=== PATIENT | male | born 1965 | race Caucasian/White ===

== ENCOUNTER 2019-04-27 10:13 | Inpatient (IN) ==
[2019-04-23 11:58] LABS: Appearance,Urine CLEAR; Bacteria,Urine 0 /hpf (0); Bilirubin,Urine NEG (NEG); Color,Urine YELLOW; Glucose,Urine (UA) NEGATIVE (NEG); Ketones,Urine NEG (NEG); Leukocyte Esterase,Urine NEG /uL (NEG); Mucus,Urine FEW /hpf (0); Nitrate,Urine NEG (NEG); Protein,Urine 30 mg/dL (NEG); Specific Gravity,Urine 1.024 (1.000-1.035); Urine Blood NEG mg/dL (<0.03); Urine Hyaline Cast 1 /lpf (0-2); Urine RBC 1 /hpf (0-1); Urine Squamous Epithelial Cell 3 /hpf (0-4); Urine WBC 2 /hpf (0-4); Urobilinogen,Urine NEG (NEG)
[2019-04-23 12:57] LABS: Blood Urea Nitrogen 19 mg/dl (6-20); Calcium 9.5 mg/dl (8.6-10.4); Carbon Dioxide 26 mmol/L (22-30); Chloride 104 mmol/L (96-108); Glomerular Filtration Rate 69; Glucose 122 mg/dL (70-105)
[2019-04-23 12:59] LABS: Basophils # (Auto) 0 K/mcL (0.0-0.3); Basophils % (Auto) 0.3 % (0.0-2.0); Eosinophils # (Auto) 0.3 K/mcL (0.0-0.7); Eosinophils % (Auto) 3.9 % (0.0-7.0); Granulocytes % (Auto) 57.6 % (38.0-78.0); Hematocrit 46.4 % (41.0-55.0); Hemoglobin 15.7 g/dL (13.5-16.5); Lymphocytes # (Auto) 2.1 K/mcL (1.5-4.8); Lymphocytes % (Auto) 29.1 % (15.5-49.0); Mean Cell Volume 90.9 fL (80.0-100.0); Mean Corpuscular HGB Conc 33.8 g/dL (31.0-36.0); Mean Platelet Volume 8.1 fL (7.4-10.4); Monocytes # (Auto) 0.7 K/mcL (0.1-0.9); Monocytes % (Auto) 9.1 % (1.0-12.0); Platelet Count 162 K/mcL (140-440); RBC 5.11 M/mcL (4.50-5.90); Red Cell Distribution Width 13.6 % (11.5-14.5); WBC 7.2 K/mcL (4.5-11.0)
[2019-04-23 13:00] LABS: Prothrombin Time 12.8 sec (11.9-14.5)
[~2019-04-27 10:13] MED LIST: 0.9 % SODIUM CHLORIDE 9 ML, KETOROLAC 30 MG, ROPIVACAINE HCL/PF 49.5 ML, EPINEPHrine 0.... IJ SCH; ACETAMINOPHEN 500 MG TABLET PO SCH; CELECOXIB 200 MG CAPSULE PO SCH; GABAPENTIN 400 MG CAPSULE PO SCH; ceFAZolin 3 GM in DEXTROSE 5% IN WATER 50 ML IV SCH; oxyCODONE 10 MG TAB.ER.12H PO SCH
[2019-04-27] MEDS ORDERED: 0.9 % SODIUM CHLORIDE 250 ML IV SCH (10:30)
[2019-04-27] MEDS ORDERED: ePHEDrine 50 MG/ML AMPUL IV ONE (11:03)
[2019-04-27] MEDS ORDERED: LIDOCAINE HCL/PF 100 MG/5 ML SYRINGE IV ONE (11:03)
[2019-04-27] MEDS ORDERED: TRANEXAMIC ACID 1,000 MG/10 ML VIAL IV ONE ×3 (11:03→13:28)
[2019-04-27] MEDS ORDERED: PHENYLEPHRINE 10 MG/ML VIAL IV ONE (11:03)
[2019-04-27] MEDS ORDERED: KETAMINE 100 MG/ML ML IV ONE (11:03)
[2019-04-27] MEDS ORDERED: DEXAMETHASONE 10 MG/ML VIAL IV ONE (11:03)
[2019-04-27] MEDS ORDERED: MIDAZOLAM 5 MG/5 ML VIAL IV ONE (11:03)
[2019-04-27] MEDS ORDERED: SUCCINYLCHOLINE 20 MG/ML ML IV ONE (11:03)
[2019-04-27] MEDS ORDERED: ROPIVACAINE HCL/PF 20 ML VIAL IJ ONE (11:03)
[2019-04-27] MEDS ORDERED: fentaNYL 100 MCG/2 ML VIAL IV ONE (11:03)
[2019-04-27] MEDS ORDERED: ONDANSETRON 4 MG/2 ML VIAL IV ONE (11:03)
[2019-04-27] MEDS ORDERED: PROPOFOL 200 MG/20 ML VIAL IV ONE (11:03)
[2019-04-27] MEDS ORDERED: ePHEDrine 50 MG/ML AMPUL IV PRN (12:09)
[2019-04-27] MEDS ORDERED: FLUMAZENIL 0.1 MG/ML ML IV PRN (12:09)
[2019-04-27] MEDS ORDERED: ONDANSETRON 4 MG/2 ML VIAL IV PRN ×2 (12:09→12:38)
[2019-04-27] MEDS ORDERED: MEPERIDINE 25 MG/ML SYRINGE IV PRN (12:09)
[2019-04-27] MEDS ORDERED: diphenhydrAMINE 50 MG/ML VIAL IV PRN (12:09)
[2019-04-27] MEDS ORDERED: METHOCARBAMOL 1,000 MG/10 ML VIAL IV PRN (12:09)
[2019-04-27] MEDS ORDERED: HYDROmorphone 2 MG/ML VIAL IV PRN ×2 (12:09→12:38)
[2019-04-27] MEDS ORDERED: ATROPINE SULFATE 0.4 MG/ML VIAL IV PRN (12:09)
[2019-04-27] MEDS ORDERED: IPRATROPIUM/ALBUTEROL 3 ML AMPUL.NEB NEB PRN (12:09)
[2019-04-27] MEDS ORDERED: fentaNYL 100 MCG/2 ML VIAL IV PRN (12:09)
[2019-04-27] MEDS ORDERED: METOPROLOL TARTRATE 5 MG/5 ML VIAL IV PRN (12:09)
[2019-04-27] MEDS ORDERED: PROMETHAZINE 25 MG/ML VIAL IV PRN (12:09)
[2019-04-27] MEDS ORDERED: NALOXONE HCL 0.4 MG/ML VIAL IV PRN (12:09)
[2019-04-27] MEDS ORDERED: GENTAMICIN SULFATE 800 MG/20 ML VIAL IR ONE (12:11)
[2019-04-27] MEDS ORDERED: LACTATED RINGERS 1,000 ML IV SCH (12:15)
[2019-04-27] MEDS ORDERED: BISACODYL 10 MG SUPP.RECT PR PRN (12:38)
[2019-04-27] MEDS ORDERED: TEMAZEPAM 15 MG CAPSULE PO PRN (12:38)
[2019-04-27] MEDS ORDERED: ACETAMINOPHEN 325 MG TABLET PO PRN (12:38)
[2019-04-27] MEDS ORDERED: POLYETHYLENE GLYCOL 3350 17 GM PACKET PO PRN (12:38)
[2019-04-27] MEDS ORDERED: BENZOCAINE/MENTHOL 1 LOZENGE PO PRN (12:38)
[2019-04-27] MEDS ORDERED: MAGNESIUM HYDROXIDE 30 ML ORAL.SUSP PO PRN (12:38)
[2019-04-27] MEDS ORDERED: FLEETS ADULT ENEMA PR PRN (12:38)
--- NOTE | 2019-04-27 12:38 | Brief Operative Note ---
Date of procedure: 04/27/19 Pre-op diagnosis: Right knee djd in 2 compartments Post-op diagnosis: same Procedure: Right tka with teresita robott Grafts/Implants: Yes Anesthesia: SWEETIE Surgeon: Yovani Gracia Block Cuber: Cordell Arvizu Estimated blood loss (cc): 120 Tourniquet Time (Minutes): 55 Specimens Removed/Pathology: none sent Condition: stable Disposition: PACU
--- NOTE | 2019-04-27 13:03 | Operative Note ---
DATE OF OPERATION: 04/27/2019 PREOPERATIVE DIAGNOSIS: Right knee degenerative arthritis, patellofemoral joint and medial. POSTOPERATIVE DIAGNOSIS: Right knee degenerative arthritis, patellofemoral joint and medial. PROCEDURE: Left total knee arthroplasty using Ronny robot. SURGEON: Yovani Gracia MD OFFSET PRESS OPERATOR HELPER: Cordell Arvizu PA-C. This provider's expertise and technical skill were required throughout the case. The MIKHAIL assisted with preoperative coordination, intraoperative retraction, wound closure, dressing and splint application, as well as postoperative documentation and care coordination. ANESTHESIA: General LMA anesthesia. COMPLICATIONS: None. DESCRIPTION OF PROCEDURE: The patient was brought to the operating room and put to sleep with general LMA anesthesia. Once asleep, the patient had the right knee sterilely prepped and draped in the usual sterile fashion. A timeout was performed confirming the operative procedure, the possibility of a partial knee or a total knee was covered. We opened the knee with midline incision, midvastus approach which showed severe arthritis in the patellofemoral joint with complete chondromalacia of the medial compartment with bony spurs present. ACL and PCL were intact. Spurs were found on medial and lateral portions of the tibia. With these findings, we proceeded with a total knee arthroplasty with two compartments being quite involved with the arthritis. We then placed the pins above and below the knee. Once this was done, we then registered the center of hip rotation, registered thirty points on the femur and tibia and registered intraarticular pins. We balanced the knee at 90 degrees and 15 degrees. Once this was done, we then irrigated and balanced the knees thoroughly and adjusted the implants for size, set rotation and varus malalignment. The patella was covered and seemed to track very well on the computer program. Once done, we then found that compartment was severely involved, the patellar femoral. We brought in the robot, made our bony cuts on the tibia and the femur, changed blade and cut the distal cuts. Once done, we then removed the bony fragments and found that there were significant spurs posteriorly which were then removed. Once done, we irrigated thoroughly and removed the remnants of the meniscus. We trialed the components on the tibia and the femur, trialing a size 9, 10 and 11. The patient was most stable with 0 degrees extension at an 11 mm poly. With this, we then chose to best cover the patella was a 40 mm oval patella. Once all components were trialled and shown in excellent range of motion and stability, we irrigated thoroughly and then cemented into place the femur and the tibia with an 11 mm poly and a 40 mm patellar button. The patella measured 26 mm. We cut this to 16 mm and it cemented into place the above-mentioned implants, size 40 patella. The components were very large given the size. We removed all spurs and irrigated thoroughly. We kept the knee at 45 degrees and deflated the tourniquet at 45 minutes and then controlled any bleeding. A small amount of tissue was removed and the superior medial compartment to ensure that this did not impinge or get caught up in a closure. We irrigated. We used Stratafix suture to close the capsule medially with #2 Stratafix with two sutures. Once completely closed, we closed the skin with 2-0 Vicryl and with adhesive closure. The patient tolerated this well without complication. Blood loss was about 120 mL. RBH:merrill Job ID: [id number] Doc ID: [id number] Yovani Gracia MD
--- NOTE | 2019-04-27 13:50 | XRay Report ---
CLINICAL INFORMATION: Post-Op Total Knee COMPARISON: None. FINDINGS: Totally prostheses is anatomically aligned. No osseous abnormalities. Gas and soft tissue swelling seen as expected. IMPRESSION: Negative Interpreted and Authenticated by: Dony Reynolds 04/27/19
[2019-04-27] MEDS: 0.9 % SODIUM CHLORIDE 10 ML SYRINGE IV SCH ×2 (15:41→21:00)
[2019-04-27] MEDS: KETOROLAC 15 MG/ML VIAL IV SCH (18:06)
[2019-04-27] MEDS: 0.45 % SODIUM CHLORIDE 1,000 ML IV SCH ×2 (18:07→20:58)
[2019-04-27] MEDS ORDERED: ALBUTEROL SULFATE 1 PUFF INHALER INH PRN (18:15)
[2019-04-27] MEDS: ceFAZolin 1 GM VIAL IV SCH (19:19)
[2019-04-27] MEDS: ASPIRIN 325 MG ENTERIC COATED TABLET PO SCH (20:54)
[2019-04-27] MEDS: DOCUSATE SODIUM 100 MG CAPSULE PO SCH (20:55)
[2019-04-27] MEDS: GABAPENTIN 400 MG CAPSULE PO SCH (20:56)
[2019-04-27] MEDS: HYDROcodone/APAP 10/325MG TABLET PO PRN (20:59)
[2019-04-27] MEDS ORDERED: PARoxetine 20 MG TABLET PO SCH (21:00)
[2019-04-27] MEDS ORDERED: SENNOSIDES 1 TABLET PO SCH (21:00)
[2019-04-27] MEDS ORDERED: DOCUSATE SODIUM 100 MG CAPSULE PO SCH (21:00)
[2019-04-27] MEDS ORDERED: ATORVASTATIN 20 MG TABLET PO SCH (21:00)
[2019-04-28] MEDS: KETOROLAC 15 MG/ML VIAL IV SCH ×3 (00:08→12:33)
[2019-04-28] MEDS: ceFAZolin 1 GM VIAL IV SCH (02:54)
[2019-04-28] MEDS: 0.9 % SODIUM CHLORIDE 10 ML SYRINGE IV SCH (05:20)
[2019-04-28] MEDS ORDERED: OMEPRAZOLE 20 MG CAPSULE PO SCH (07:30)
--- NOTE | 2019-04-28 07:47 | Orthopedic Progress Note ---
Subjective Patient information: Note initiated : 04/28/19 at 7:46 am Service Date, if different from initiated Date: [] Patient: Juan Lua 53 y/o M admitted on 04/27/19 for Right Uni Medial SEGUNDO Knee vs Total Knee. Chief Complaint: [Pt is stable this morning on post operative day 1 without any significant concerns or complaints. Patients vital signs have remained stable. Patients dressing is dry and is grossly intact from a neurovascular and motor standpoint. Patients 10 point ROS is otherwise negative. ] Objective Vital signs: Vital Signs Temp Pulse Resp BP BP Pulse Ox 04/28/19 05:00 79 92 04/28/19 03:33 97.5 F 79 16 113/72 92 04/28/19 00:56 95 H 93 04/27/19 22:54 98.1 F 95 H 16 102/62 91 04/27/19 21:00 97 H 94 04/27/19 19:50 97 H 18 92 04/27/19 19:22 98.9 F 97 H 18 114/65 92 04/27/19 17:00 91 H 92 04/27/19 16:00 97.1 F 94 H 18 107/63 94 04/27/19 15:45 97.1 F 88 18 124/83 97 04/27/19 15:15 90 18 129/77 95 04/27/19 15:00 88 18 114/74 95 04/27/19 14:45 92 H 18 116/79 95 04/27/19 14:30 93 H 16 121/80 95 04/27/19 14:15 97.2 F 93 H 18 113/72 89 L 04/27/19 14:07 97.6 F 91 H 15 136/68 93 04/27/19 14:02 97.6 F 91 H 15 148/72 92 04/27/19 13:55 97.6 F 94 H 16 159/81 93 04/27/19 13:50 98.0 F 98 H 16 130/74 91 04/27/19 13:45 99 H 16 119/86 90 04/27/19 13:40 97 H 15 136/68 91 04/27/19 13:35 95 H 18 136/68 94 04/27/19 13:30 90 17 144/79 95 04/27/19 13:25 94 H 16 153/81 95 04/27/19 13:21 98.4 F 103 H 16 154/77 93 04/27/19 10:31 97.8 F 73 18 116/84 94 Intake and Output 04/27/19 04/28/19 04/28/19 21:59 05:59 13:59 Intake Total 790 1950 Output Total 300 450 Balance 490 1500 Intake: IV 1050 Sodium Chloride 0.45% 1,000 ml 1000 @ 100 mls/hr IV .Q10H LISANDRO Rx#: [id number] Oral 640 900 IV - Manual Only 150 Output: Void Amount 300 450 Other: Meal Dinner Percent of Meal Consumed 100% Feeding Ability Independent Urine Appearance Clear Clear Urine Color Dark Yellow Urine Odor Strong # Voids 1 Weight 330 lb 337 lb 9.6 oz Intake & Output: Intake & Output 04/27/19 04/28/19 04/28/19 21:59 05:59 13:59 Intake Total 790 1950 Output Total 300 450 Balance 490 1500 Weight 330 lb 337 lb 9.6 oz Intake: IV 1050 Sodium Chloride 0.45% 1,000 ml 1000 @ 100 mls/hr IV .Q10H LISANDRO Rx#: [id number] Oral 640 900 IV - Manual Only 150 Output: Void Amount 300 450 Other: Meal Dinner Percent of Meal Consumed 100% Feeding Ability Independent Urine Appearance Clear Clear Urine Color Dark Yellow Urine Odor Strong # Voids 1 Incision: Yes healing Incision clean and dry: Yes Dressing: Yes clean Weight bearing status: full Neurological exam IM: Yes motor sensory intact, Yes neurovascular intact Extremities exam IM: Yes Foot pink and warm, Yes neurovascular intact - Labs CBC & BMP: 04/28/19 04:51 04/23/19 10:03 Labs: Orthopedic Labs 04/23/19 10:03 PT 12.8 INR 1.0 APTT 27 04/28/19 04/23/19 04:51 10:03 Hgb 15.7 Hct 36.9 L 46.4 Assessment and Plan (1) Hx of total knee arthroplasty The patient has been educated regarding dressing care, Physical Therapy recommendations, home exercises, restrictions, and follow up appointments. The patient has had all necessary DME prescribed. The patient has remained relatively stable during their hospital course. Leave Dermabond patch intact until followup Status: Acute
--- NOTE | 2019-04-28 07:48 | Discharge Summary ---
Ortho Discharge - TKA - Patient Instructions Diet: Regular Diet Activity: activity as tolerated, weight bearing as tolerated Total Knee Protocol: For Total Knee: Start ROM CHRISTINA with stationary bike or rocking chair. Work on gaining full extension of knee. Posterior dislocation precautions provided. Hip abductor strengthening and gait training instructions provided. Apply Cryocuff as instructed. Dressing Care: May shower in 2 days - Problem Maintenance (1) Hx of total knee arthroplasty Status: Acute - Follow Up Plan Follow Up Appointments: Yovani Gracia MD [Physician] - 05/19/19 9:20 am Disposition: Home, Self-Care Prognosis: Good Rehab Potential: Good I certify that the patient requires SNF services: No Overall status at discharge: patient is progressing back to baseline - Orders For Discharge Prescriptions: Aspirin [Ecotrin] 325 mg PO BID #28 tab.ec HYDROcodone/APAP 10/325MG [[place] 10-325Mg] 1 - 2 tab PO Q4H PRN #60 tab PRN Reason: Pain Additional Discharge Orders: Physical Therapy at Discharge - TKA Location: None Selected CPM Discharge Order Location: None Selected Toilet Riser Discharge Order Location: None Selected Walker Location: None Selected
[2019-04-28] MEDS ORDERED: MULTIVIT,THER IRON,CA,FA & MIN 1 TABLET PO SCH (09:00)
[2019-04-28] MEDS: GABAPENTIN 400 MG CAPSULE PO SCH (09:32)
[2019-04-28] MEDS: ASPIRIN 325 MG ENTERIC COATED TABLET PO SCH (09:32)
[2019-04-28] MEDS: DOCUSATE SODIUM 100 MG CAPSULE PO SCH (09:32)
[2019-04-28] MEDS: HYDROcodone/APAP 10/325MG TABLET PO PRN ×2 (11:06→12:05)
== END 2019-04-28 13:45 | disposition home or self-care (01) | DRG 470 ==
LOC: SUR 10:13 → MEDSUR 14:07
PROVIDERS: ADMIT Orthopaedic Surgery; ATTEND Orthopaedic Surgery

== ENCOUNTER 2021-04-20 14:59 | Inpatient (IN) ==
--- NOTE | 2021-04-20 15:40 | XRay Report ---
HISTORY: Shortness of breath, hypoxia, tested positive for COVID FINDINGS: There are moderate diffuse alveolar infiltrates in both lungs with relative sparing of the lung apices. There is no pleural effusion. Heart size is upper limits of normal but magnified. The pneumonia is a new finding since the prior x-ray done on 05/25/16. IMPRESSION: Moderate bilateral COVID pneumonia Interpreted and Authenticated by: Devon Lala 04/20/21
--- NOTE | 2021-04-20 17:39 | Emergency Department Note ---
HPI General Chief complaint: Cold/Flu Symptoms Stated complaint: Covid, hypoxia Time Seen by Provider: 04/20/21 15:14 Source: patient Mode of arrival: ambulatory Limitations: no limitations History of Present Illness HPI Narrative: This is a 55-year-old male patient who presents with hypoxia at 88% on room air with positive result for Covid today. Patient is requiring 4 L NC oxygen. Patient is reporting dyspnea, but he states that his dyspnea has been ongoing for about 6 months. Its gotten worse in the last 3 months. He states that he has significant exertional shortness of breath relieved by rest. He does have a history of sleep apnea and wears a CPAP at 50% of the time. No cardiac history. Not on antihypertensives or diabetic medications. He is asthmatic and uses an albuterol inhaler twice a day. Does not smoke. No history of COPD. Reports orthopnea. Denies lower extremity edema. Related Data Home Medications Medication Instructions Recorded Confirmed Atorvastatin [Lipitor] 20 mg PO DAILY 03/10/15 04/20/21 docusate sodium [DulcoEase] 250 mg PO BID 03/10/15 04/20/21 gabapentin 1,600 mg PO BID 03/10/15 04/20/21 meloxicam 15 mg PO HS 03/10/15 04/20/21 omega 1-qzw-oqw-fish oil [Fish Oil] 1,000 mg PO BID 03/10/15 04/20/21 paroxetine HCl [Paxil] 60 mg PO HS 03/10/15 04/20/21 ergocalciferol (vitamin D2) 50,000 unit PO WEEKLY 04/23/19 04/20/21 multivit with min-folic acid 200 mcg PO DAILY 04/23/19 04/20/21 omeprazole 20 mg PO ACB 04/23/19 04/20/21 Previous Rx's Medication Instructions Recorded aspirin 325 mg PO BID #28 tab.ec 04/27/19 hydrocodone-acetaminophen 1 - 2 tab PO Q4H PRN #60 tab 04/27/19 ranitidine HCl 300 mg PO QHS #7 tab 05/08/19 Allergies Allergy/AdvReac Type Severity Reaction Status Date / Time No Known Drug Allergies Allergy Verified 04/20/21 15:00 Review of Systems ROS ROS Narrative: Narrative: All systems ED: reviewed and negative except as stated. PFSH Narrative Patient History Narrative: Narrative: Medical/Surgical/Family History All Active Problems (Updated 04/20/21 @ 20:44 by Maria Esther Fernandez PA-C) Pneumonia due to COVID-19 virus (Acute) Hypoxia (Acute) Respiratory distress (Acute) Reactive airway disease (Acute) Pleuritic chest pain (Acute) Hx of total knee arthroplasty (Acute) Urticaria (Acute) Allergic reaction (Acute) Medical History Pleuritic chest pain Reactive airway disease Respiratory distress Social History Smoking Status: Current some day smoker Exam Narrative Narrative: General: AOx3, NAD, ill appearing. Dyspneic but speaking in full sentences. HEENT: PERRLA, EOMI, normocephalic. Moist mucous membranes. Normal facies and normal dentition. Respiratory: Lungs bilateral crackles. Mildly tachypneic. Sats are 85% on room air. Heart: Regular rate and rhythm, no murmurs/clicks/rubs. Abdomen: Non-tender, Non distended, normal bowel tones. No organomegaly. Extremities: Warm and well perfused. No edema. DP 2+ bilaterally. No venous stasis. Neuro: No focal deficits. Cranial nerves II-XII normal. Skin: Warm dry, no rashes or lesions, no cyanosis. Psych: Normal mood and affect Heme/Lymph: No abnormal bruising General Limitations: no limitations Course Course Course Narrative: 55-year-old male presents with complaints of shortness of breath x6 months now hypoxic with diagnosis of Covid pneumonia. Reevaluation(s) Reevaluation #1: Obtain chest x-ray, EKG, CBC, CMP, proBNP Reevaluation #2: Chest x-ray shows bilateral Covid pneumonia. CBC without leukocytosis. proBNP is not elevated. CMP shows a mild elevation of his AST and a slight bump in his creatinine to 1.4 from 1.2 at baseline. Vital Signs Vital signs: Vital Signs Temperature 98.2 F 04/20/21 15:00 Pulse Rate 120 H 04/20/21 15:00 Respiratory Rate 22 04/20/21 15:00 Blood Pressure 121/87 04/20/21 15:00 Pulse Oximetry (%) 84 L 04/20/21 15:00 Temperature 98.2 F 04/20/21 15:00 Pulse Rate 116 H 04/20/21 20:08 Respiratory Rate 22 04/20/21 15:00 Blood Pressure 121/87 04/20/21 15:00 Pulse Oximetry (%) 88 L 04/20/21 20:08 MDM MDM Narrative Medical decision making narrative: Hypoxia Covid pneumonia Chronic shortness of breath The patient has shortness of breath at baseline. Unclear if this is currently in exacerbation due to Covid pneumonia versus a baseline problem. Patient would likely benefit from admission and further work-up in addition to treatment for hypoxia related to his Covid pneumonia. Patient does meet criteria for admission with oxygen requirements. I have given him a dose of Decadron and a DuoNeb treatment here in the ER. Currently he is pending admission. Lab Data Result diagrams: 04/20/21 17:42 04/20/21 17:42 Labs: Lab Results 04/20/21 04/20/21 Range/Units 17:42 17:42 WBC 5.5 (4.5-11.0) K/mcL RBC 4.56 L (4.63-6.08) M/mcL Hgb 13.6 L (13.7-17.5) g/dL Hct 41.3 (40.1-51.0) % MCV 90.6 (80.0-100.0) fL MCH 29.8 (26.0-34.0) pg MCHC 32.9 (31.0-36.0) g/dL RDW 13.0 (11.5-14.5) % Plt Count 149 (140-440) K/mcL MPV 9.7 (7.4-10.4) fL Seg Neutrophils % 66 (38-78) % Lymphocytes % 29 (15-49) % Monocytes % (Manual) 3 (1-12) % Reactive Lymphocytes 2 (0-2) % Platelet Estimate Normal (Normal) RBC Morphology Normal (Normal) Sodium 136 (133-145) mmol/L Potassium 3.8 (3.3-5.1) mmol/L Chloride 99 (96-108) mmol/L Carbon Dioxide 24 (22-30) mmol/L Anion Gap 13.0 (8.0-16.0) BUN 23 H (6-20) mg/dL Creatinine 1.4 H (0.7-1.2) mg/dL GFR Calculation 56 Glucose 90 (70-105) mg/dL Calcium 8.2 L (8.6-10.4) mg/dL Total Bilirubin 0.6 (0.1-1.0) mg/dL AST 40 H (<40) U/L ALT 25 (<40) U/L Alkaline Phosphatase 48 (39-117) U/L NT-Pro-B Natriuret Pep 21.7 (<125.0) pg/mL Total Protein 6.8 (5.9-8.4) gm/dL Albumin 3.7 (3.2-5.2) gm/dL Globulin 3.1 (2.2-3.7) gm/dL Albumin/Globulin Ratio 1.2 (1.0-2.3) Discharge Plan Patient/Caregiver Discharge Instructions Pt seen by ART DEPARTMENT HEAD/PA only: Yes Clinical Impression: Pneumonia due to COVID-19 virus, Hypoxia Patient Disposition: Xfer As Inpt ([facility]) Condition: Fair Follow up with: Devon Nails, NITZA [Primary Care Provider] - Prescriptions: No Action docusate sodium [DulcoEase] 100 MG capsule 250 mg PO BID RF: 0 meloxicam 15 MG tablet 15 mg PO HS RF: 0 paroxetine HCl [Paxil] 30 MG tablet 60 mg PO HS RF: 0 Atorvastatin [Lipitor] 10 MG tablet 20 mg PO DAILY RF: 0 gabapentin 300 MG capsule 1,600 mg PO BID RF: 0 omega 1-lzx-ttz-fish oil [Fish Oil] 1,000 MG capsule 1,000 mg PO BID RF: 0 omeprazole 20 MG capsule 20 mg PO ACB RF: 0 ergocalciferol (vitamin D2) 50,000 UNIT capsule 50,000 unit PO WEEKLY RF: 0 multivit with min-folic acid 200 MCG tablet,chewable 200 mcg PO DAILY RF: 0 hydrocodone-acetaminophen 1 TAB tablet 1 - 2 tab PO Q4H PRN (Reason: Pain) Qty: 60 RF: 0 aspirin 325 MG tablet,delayed release (DR/EC) 325 mg PO BID Qty: 28 RF: 0 ranitidine HCl 300 MG tablet 300 mg PO QHS Qty: 7 RF: 0
[2021-04-20] MEDS ORDERED: DEXAMETHASONE 10 MG/ML VIAL IV ONE (18:17)
[2021-04-20 18:36] LABS: Hematocrit 41.3 % (40.1-51.0); Hemoglobin 13.6 g/dL (13.7-17.5); Mean Cell Volume 90.6 fL (80.0-100.0); Mean Corpuscular HGB Conc 32.9 g/dL (31.0-36.0); Mean Platelet Volume 9.7 fL (7.4-10.4); Platelet Count 149 K/mcL (140-440); RBC 4.56 M/mcL (4.63-6.08); WBC 5.5 K/mcL (4.5-11.0)
[2021-04-20 18:59] LABS: proBNP 21.7 pg/mL (<125.0)
[2021-04-20 19:02] LABS: ALT/SGPT 25 U/L (<40); AST/SGOT 40 U/L (<40); Albumin 3.7 gm/dL (3.2-5.2); Albumin/Globulin Ratio 1.2 (1.0-2.3); Alkaline Phosphatase 48 U/L (39-117); Bilirubin,Total 0.6 mg/dL (0.1-1.0); Blood Urea Nitrogen 23 mg/dL (6-20); Calcium 8.2 mg/dL (8.6-10.4); Carbon Dioxide 24 mmol/L (22-30); Chloride 99 mmol/L (96-108); Globulin 3.1 gm/dL (2.2-3.7); Glomerular Filtration Rate 56; Glucose 90 mg/dL (70-105)
[2021-04-20 19:11] LABS: Lymphocytes % 29 % (15-49); Monocytes % (Manual) 3 % (1-12); Platelet Estimate NORMAL (Normal); RBC Morphology NORMAL (Normal); Reactive Lymphocytes 2 % (0-2); Segmented Neutrophils % 66 % (38-78)
[2021-04-20] MEDS ORDERED: IPRATROPIUM/ALBUTEROL 3 ML AMPUL.NEB NEB ONE (19:18)
[2021-04-20] MEDS ORDERED: REMDESIVIR 200 MG in 0.9 % SODIUM CHLORIDE 250 ML IV ONE (19:49)
--- NOTE | 2021-04-20 20:11 | Internal Med History&Physical ---
HPI History of Present Illness Patient information: Note initiated : 04/20/21 at 8:07 pm Service Date, if different from initiated Date: [] Patient: Juan Lua a 55 y/o M admitted on for Covid, hypoxia. Chief Complaint: [] History of present illness: Mr. Lua is a 55 year old M Presents to ED with shortness of breath weakness fatigue cough. Patient states that he said shortness of breath for about a year and has been worked up by his PCP. He had a CT chest in August which was unremarkable. Has not had an echocardiogram. However patient states over the past week he has had increasing shortness of breath where he can hardly walk across living room and has been much more weak and fatigued. He has a dry cough. He is unvaccinated. He was 84% on room air when he came in. Review of Systems: denies headache/fever/chills/nausea/vomiting/chest or abdominal pain/cough/dyspnea/diarrhea. Otherwise see above. PFSH PFSH All Active Problems Respiratory distress (Acute) Reactive airway disease (Acute) Pleuritic chest pain (Acute) Hx of total knee arthroplasty (Acute) Urticaria (Acute) Allergic reaction (Acute) Medical History Pleuritic chest pain Reactive airway disease Respiratory distress MEDS/ALLERGIES Home Medications and Allergies Home Medications Medication Instructions Recorded Confirmed Type Atorvastatin [Lipitor] 20 mg PO DAILY 03/10/15 04/20/21 History docusate sodium [DulcoEase] 250 mg PO BID 03/10/15 04/20/21 History gabapentin 1,600 mg PO BID 03/10/15 04/20/21 History meloxicam 15 mg PO HS 03/10/15 04/20/21 History omega 2-wxq-lyw-fish oil [Fish Oil] 1,000 mg PO BID 03/10/15 04/20/21 History paroxetine HCl [Paxil] 60 mg PO HS 03/10/15 04/20/21 History ergocalciferol (vitamin D2) 50,000 unit PO WEEKLY 04/23/19 04/20/21 History multivit with min-folic acid 200 mcg PO DAILY 04/23/19 04/20/21 History omeprazole 20 mg PO ACB 04/23/19 04/20/21 History aspirin 325 mg PO BID #28 tab.ec 04/27/19 04/20/21 Rx hydrocodone-acetaminophen 1 - 2 tab PO Q4H PRN #60 tab 04/27/19 04/20/21 Rx ranitidine HCl 300 mg PO QHS #7 tab 05/08/19 04/20/21 Rx Allergies Allergy/AdvReac Type Severity Reaction Status Date / Time No Known Drug Allergies Allergy Verified 04/20/21 15:00 EXAM Constitutional Vitals: Temp Pulse Resp BP Pulse Ox 98.2 F 107 H 22 121/87 88 L 04/20/21 15:00 04/20/21 19:48 04/20/21 15:00 04/20/21 15:00 04/20/21 19:48 Exam: General: Alert, Awake, No acute Distress Eyes/N/T: EOMI, PERRL, Head/Neck: neck supple, normocephalic atraumatic CV: RRR, No murmurs, normal s1/s2 Pulm: Mild fine b/l, no wheezing Abd: soft, nontender, +BS x4 Ext: no clubbing/cyanosis/edema Neuro: Alert, no focal deficits, moves all extremities, CN 2-12 grossly intact, symmetrical strength b/l upper/lower, sensations intact b/l upper/lower Skin: warm/dry DATA Data Completed and Pending Labs: Labs from last 24 hours 04/20/21 04/20/21 04/20/21 17:42 17:42 17:42 WBC RBC Hgb Hct MCV MCH MCHC RDW Plt Count MPV Seg Neutrophils % Lymphocytes % Monocytes % (Manual) Reactive Lymphocytes Platelet Estimate RBC Morphology PT Pending INR Pending D-Dimer Pending Sodium 136 Potassium 3.8 Chloride 99 Carbon Dioxide 24 Anion Gap 13.0 BUN 23 H Creatinine 1.4 H GFR Calculation 56 Glucose 90 Calcium 8.2 L Ferritin Pending Total Bilirubin 0.6 AST 40 H ALT 25 Alkaline Phosphatase 48 Total Creatine Kinase Pending C-Reactive Protein Pending NT-Pro-B Natriuret Pep 21.7 Total Protein 6.8 Albumin 3.7 Globulin 3.1 Albumin/Globulin Ratio 1.2 04/20/21 17:42 WBC 5.5 RBC 4.56 L Hgb 13.6 L Hct 41.3 MCV 90.6 MCH 29.8 MCHC 32.9 RDW 13.0 Plt Count 149 MPV 9.7 Seg Neutrophils % 66 Lymphocytes % 29 Monocytes % (Manual) 3 Reactive Lymphocytes 2 Platelet Estimate Normal RBC Morphology Normal PT INR D-Dimer Sodium Potassium Chloride Carbon Dioxide Anion Gap BUN Creatinine GFR Calculation Glucose Calcium Ferritin Total Bilirubin AST ALT Alkaline Phosphatase Total Creatine Kinase C-Reactive Protein NT-Pro-B Natriuret Pep Total Protein Albumin Globulin Albumin/Globulin Ratio A/P Narrative A/P Narrative: A: *Covid pneumonia w/ : *Acute hypoxic respiratory failure: -on 6L oxymask *Chronic dyspnea, acute on chronic: -Being worked up by PCP, had unremarkable CT chest earlier in the year, has not had echo *?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
[2021-04-20 20:50] LABS: Creatine Kinase 346 U/L (24-195)
[2021-04-20 21:00] LABS: Ferritin 910.8 ng/mL (30.0-400.0)
[2021-04-20 21:01] LABS: INR 1.1 (0.9-1.1); Prothrombin Time 14.5 sec (11.9-14.5)
[2021-04-20] MEDS ORDERED: MAGNESIUM SULFATE 2 GM/50 ML BAG IV PRN (21:15)
[2021-04-20] MEDS ORDERED: SENNOSIDES 1 TABLET PO PRN (21:15)
[2021-04-20] MEDS ORDERED: POTASSIUM CHLORIDE 40 MEQ in DEXTROSE 5% IN WATER 500 ML IV PRN (21:15)
[2021-04-20] MEDS ORDERED: POTASSIUM CHLORIDE 20 MEQ TABLET PO PRN ×2 (21:15)
[2021-04-20] MEDS ORDERED: ACETAMINOPHEN 325 MG TABLET PO PRN (21:15)
[2021-04-20] MEDS ORDERED: POLYETHYLENE GLYCOL 3350 17 GM PACKET PO PRN (21:15)
[2021-04-20] MEDS ORDERED: ONDANSETRON 4 MG/2 ML VIAL IV PRN (21:15)
[2021-04-20] MEDS ORDERED: IPRATROPIUM/ALBUTEROL 3 ML AMPUL.NEB NEB PRN (21:15)
[2021-04-20] MEDS: DOCUSATE SODIUM 100 MG CAPSULE PO SCH (21:27)
[2021-04-20] MEDS: IPRATROPIUM/ALBUTEROL SULFATE 1 PUFF INHALER INH SCH (21:32)
[2021-04-20] MEDS: ENOXAPARIN 40 MG/0.4 ML SYRINGE SQ SCH (21:46)
[2021-04-20] MEDS: 0.9 % SODIUM CHLORIDE 10 ML SYRINGE IV SCH (21:47)
[2021-04-20] MEDS: MELOXICAM 7.5 MG TABLET PO SCH (22:36)
[2021-04-20] MEDS: GABAPENTIN 400 MG CAPSULE PO SCH (22:36)
[2021-04-20] MEDS: PARoxetine 20 MG TABLET PO SCH (22:36)
[2021-04-21] MEDS: 0.9 % SODIUM CHLORIDE 10 ML SYRINGE IV SCH ×3 (05:51→20:37)
[2021-04-21 07:40] LABS: Basophils # (Auto) 0 K/mcL (0.00-0.30); Basophils % (Auto) 0 % (0.0-2.0); Eosinophils # (Auto) 0 K/mcL (0.00-0.70); Eosinophils % (Auto) 0 % (0.0-7.0); Hematocrit 40.7 % (40.1-51.0); Hemoglobin 13.5 g/dL (13.7-17.5); Lymphocytes # (Auto) 1.16 K/mcL (1.50-4.80); Lymphocytes % (Auto) 25.7 % (15.5-49.0); Mean Cell Volume 91.9 fL (80.0-100.0); Mean Corpuscular HGB Conc 33.2 g/dL (31.0-36.0); Monocytes # (Auto) 0.27 K/mcL (0.10-0.90); Neutrophils % (Auto) 68.3 % (38.0-78.0); Platelet Count 155 K/mcL (140-440); RBC 4.43 M/mcL (4.63-6.08); WBC 4.5 K/mcL (4.5-11.0)
--- NOTE | 2021-04-21 07:44 | Internal Med Progress Note ---
SUBJECTIVE Subjective Patient information: Note initiated : 04/21/21 at 7:41 am Service Date, if different from initiated Date: [] Patient: Juan uLa a 55 y/o M admitted on 04/20/21 for Covid, hypoxia. Chief Complaint: [] Interval history: History of present illness: Mr. Lua is a 55 year old M Presents to ED with shortness of breath weakness fatigue cough. Patient states that he said shortness of breath for about a year and has been worked up by his PCP. He had a CT chest in August which was unremarkable. Has not had an echocardiogram. However patient states over the past week he has had increasing shortness of breath where he can hardly walk across living room and has been much more weak and fatigued. He has a dry cough. He is unvaccinated. He was 84% on room air when he came in. 04/21 Patient requiring more oxygen this morning and is on Vapotherm but he says he feels a lot better. Echocardiogram done this morning. Constitutional Vitals: Vital Signs Temp Pulse Resp BP Pulse Ox 95.9 F L 76 27 H 110/78 91 04/21/21 04:01 04/21/21 06:02 04/21/21 06:02 04/21/21 06:02 04/21/21 06:02 Period Temp Pulse Resp BP Sys/Stephens Pulse Ox Last 24 Hr 95.9 F-98.2 F 76-120 22-32 110-135/78-87 84-93 Intake and Output 04/20/21 04/21/21 04/21/21 21:59 05:59 13:59 Intake Total 1270 Output Total 220 Balance 1050 Weight 145.694 kg 145.694 kg Intake & Output: Intake & Output 04/20/21 04/21/21 04/21/21 21:59 05:59 13:59 Intake Total 1270 Output Total 220 Balance 1050 Weight 145.694 kg 145.694 kg Intake: IV 250 Veklury 200 mg In Sodium 250 Chloride 0.9% 250 ml @ 500 mls/ hr IV ONCE ONE Rx#:[id number] Oral 1020 Output: Void Amount 220 Other: Urine Appearance Clear Urine Color Dark Yellow Exam: General: Alert, Awake, No acute Distress, obese Eyes/N/T: EOMI, Head/Neck: neck supple, CV: RRR, No murmurs, normal s1/s2 Pulm: Mild fine b/l and diminished more on the right, no wheezing Abd: soft, nontender, +BS x4 Ext: no clubbing/cyanosis/edema Neuro: Alert, no focal deficits, moves all extremities, Skin: warm/dry OBJ DATA Labs CBC & Chem 7: 04/21/21 05:05 04/21/21 05:05 Labs: Abnormal Lab Results 04/21/21 04/20/21 04/20/21 05:05 17:42 17:42 RBC 4.43 L Hgb 13.5 L Lymph # (Auto) 1.16 L D-Dimer 1.91 H BUN Creatinine Calcium Ferritin 910.8 H AST Total Creatine Kinase 346 H C-Reactive Protein 17.50 H 04/20/21 04/20/21 17:42 17:42 RBC 4.56 L Hgb 13.6 L Lymph # (Auto) D-Dimer BUN 23 H Creatinine 1.4 H Calcium 8.2 L Ferritin AST 40 H Total Creatine Kinase C-Reactive Protein Meds: Medications Acetaminophen (Acetaminophen 325 Mg Tablet) 650 mg PO Q6HP PRN PRN Reason: PAIN/FEVER > 101 Albuterol/Ipratropium (Ipratropium/Albuterol 3 Ml Ampul.Neb) 3 ml NEB Q4HP PRN PRN Reason: Shortness Of Breath Albuterol/Ipratropium (Ipratropium/Albuterol Sulfate 1 Puff Inhaler) 2 puff INH TID [facility] Last Admin: 04/20/21 21:32 Dose: Not Given Documented by: Dexamethasone (Dexamethasone 4 Mg Tablet) 6 mg PO DAILY [facility] Docusate Sodium (Docusate Sodium 100 Mg Capsule) 100 mg PO BID [facility] Last Admin: 04/20/21 21:27 Dose: Not Given Documented by: Enoxaparin Sodium (Enoxaparin 40 Mg/0.4 Ml Syringe) 40 mg SQ BID [facility] Last Admin: 04/20/21 21:46 Dose: 40 mg Documented by: Gabapentin (Gabapentin 400 Mg Capsule) 400 mg PO BID [facility] Last Admin: 04/20/21 22:36 Dose: 400 mg Documented by: Potassium Chloride 40 meq/ (Dextrose) 520 mls @ 130 mls/hr IV UD PRN PRN Reason: Potassium < 3 Magnesium Sulfate (Magnesium Sulfate) 2 gm in 50 mls @ 50 mls/hr IV UD PRN PRN Reason: Magnesium </= 1.6 REMDESIVIR 100 mg/ Sodium (Chloride) 250 mls @ 500 mls/hr IV DAILY@1400 [facility] Stop: 04/24/21 14:29 Meloxicam (Meloxicam 7.5 Mg Tablet) 15 mg PO QHS [facility]; Protocol Last Admin: 04/20/21 22:36 Dose: 15 mg Documented by: Ondansetron HCl (Ondansetron 4 Mg/2 Ml Vial) 4 mg IV Q4HP PRN PRN Reason: Nausea And Vomiting Paroxetine HCl (Paroxetine 20 Mg Tablet) 60 mg PO HS [facility] Last Admin: 04/20/21 22:36 Dose: 60 mg Documented by: Polyethylene Glycol (Polyethylene Glycol 3350 17 Gm Packet) 17 gm PO DAILYP PRN PRN Reason: Constipation Potassium Chloride (Potassium Chloride 20 Meq Tablet) 40 meq PO UD PRN PRN Reason: Potssium is 3-3.5 Potassium Chloride (Potassium Chloride 20 Meq Tablet) 40 meq PO UD PRN PRN Reason: Potassium < 3 Senna (Sennosides 1 Tablet) 2 tab PO DAILYP PRN PRN Reason: Constipation Sodium Chloride (0.9 % Sodium Chloride 10 Ml Syringe) 10 ml IV Q8 [facility] Last Admin: 04/21/21 05:51 Dose: 10 ml Documented by: A/P Narrative A/P Narrative: A: *Covid pneumonia w/ARDS : *Acute hypoxic respiratory failure: -on high flow fio2 65% & 40l/m *Chronic dyspnea, acute on chronic: -Being worked up by PCP, had unremarkable CT chest earlier in the year, has not had echo *?AYANA on CKD II-III(unknown baseline): Stable *Obesity: *RODERICK on CPAP@home *Depression/anxiety: *GERD: *Chronic pain: * P: -Remdesivir/dexamethasone -O2 support, wean as able -Proning, out of bed to chair, mobilization -IS/Acapella, prn nebs/IH's -f/u inflammatory markers -ambulation in room -ppx: lovoenox bid Full code Time Spent With Patient Time: Total time spent is greater than 50% in coordination of care (as documented) at patient's floor/unit and/or counseling patient: QUALITY VTE Deep Vein Thrombosis/Pulmonary Embolism Present on Admission: No
[2021-04-21 07:59] LABS: ALT/SGPT 25 U/L (<40); AST/SGOT 40 U/L (<40); Albumin 3.3 gm/dL (3.2-5.2); Albumin/Globulin Ratio 0.9 (1.0-2.3); Alkaline Phosphatase 49 U/L (39-117); Bilirubin,Direct 0.2 mg/dL (<0.3); Bilirubin,Total 0.6 mg/dL (0.1-1.0); Blood Urea Nitrogen 25 mg/dL (6-20); Calcium 8.4 mg/dL (8.6-10.4); Carbon Dioxide 20 mmol/L (22-30); Chloride 103 mmol/L (96-108); Globulin 3.5 gm/dL (2.2-3.7); Glomerular Filtration Rate 61; Glucose 133 mg/dL (70-105); Lactate Dehydrogenase 526 U/L (135-225); Phosphorous 2.3 mg/dL (2.5-4.5); Triglycerides 142 mg/dL (<150); Uric Acid 8.7 mg/dL (2.5-8.0)
[2021-04-21] MEDS: ENOXAPARIN 40 MG/0.4 ML SYRINGE SQ SCH ×2 (09:12→20:37)
[2021-04-21] MEDS: DOCUSATE SODIUM 100 MG CAPSULE PO SCH ×2 (09:12→20:32)
[2021-04-21] MEDS: IPRATROPIUM/ALBUTEROL SULFATE 1 PUFF INHALER INH SCH (09:13)
[2021-04-21] MEDS: DEXAMETHASONE 4 MG TABLET PO SCH (09:13)
[2021-04-21] MEDS: GABAPENTIN 400 MG CAPSULE PO SCH ×2 (09:13→20:37)
[2021-04-21] MEDS: REMDESIVIR 100 MG in 0.9 % SODIUM CHLORIDE 250 ML IV SCH (14:19)
[2021-04-21] MEDS: PARoxetine 20 MG TABLET PO SCH (20:37)
[2021-04-21] MEDS: MELOXICAM 7.5 MG TABLET PO SCH (20:37)
[2021-04-22] MEDS: 0.9 % SODIUM CHLORIDE 10 ML SYRINGE IV SCH ×3 (04:59→21:30)
--- NOTE | 2021-04-22 07:49 | Internal Med Progress Note ---
SUBJECTIVE Subjective Patient information: Note initiated : 04/22/21 at 7:47 am Service Date, if different from initiated Date: [] Patient: Juan Lua 55 y/o M admitted on 04/20/21 for Covid, hypoxia. Chief Complaint: [] Interval history: History of present illness: Mr. Lua is a 55 year old M Presents to ED with shortness of breath weakness fatigue cough. Patient states that he said shortness of breath for about a year and has been worked up by his PCP. He had a CT chest in August which was unremarkable. Has not had an echocardiogram. However patient states over the past week he has had increasing shortness of breath where he can hardly walk across living room and has been much more weak and fatigued. He has a dry cough. He is unvaccinated. He was 84% on room air when he came in. 04/21 Patient requiring more oxygen this morning and is on Vapotherm but he says he feels a lot better. Echocardiogram done this morning. 04/22 Patient seems to be feeling well. Has minimal shortness of breath and minimal cough. No overnight event or new complaints. Review of Systems: denies headache/fever/chills/nausea/vomiting/chest or abdominal pain/diarrhea. Otherwise see above. Constitutional Vitals: Vital Signs Temp Pulse Resp BP Pulse Ox 96.9 F L 72 18 111/78 92 04/22/21 04:01 04/22/21 07:31 04/22/21 07:31 04/22/21 06:01 04/22/21 07:31 Period Temp Pulse Resp BP Sys/Stephens Pulse Ox Last 24 Hr 96.1 F-97.4 F 55-90 10-29 99-131/65-87 90-95 Intake and Output 04/21/21 04/22/21 04/22/21 21:59 05:59 13:59 Intake Total 1390 480 Output Total 900 200 225 Balance 490 280 -225 Weight 145.694 kg Intake & Output: Intake & Output 04/21/21 04/22/21 04/22/21 21:59 05:59 13:59 Intake Total 1390 480 Output Total 900 200 225 Balance 490 280 -225 Weight 145.694 kg Intake: IV 250 Veklury 100 mg In Sodium 250 Chloride 0.9% 250 ml @ 500 mls/ hr IV DAILY@1400 [facility] Rx#: [id number] Oral 1140 480 Output: Void Amount 900 200 225 Other: Urine Appearance Clear Clear Clear Urine Color Light Yaneth Dark Yellow Dark Yellow Urine Odor Normal Exam: General: Alert, Awake, No acute Distress, obese Eyes/N/T: EOMI, Head/Neck: neck supple, CV: RRR, No murmurs, normal s1/s2 Pulm: Mild fine b/l and diminished more on the right but better, no wheezing Abd: soft, nontender, +BS x4 Ext: no clubbing/cyanosis/edema Neuro: Alert, no focal deficits, moves all extremities, Skin: warm/dry OBJ DATA Labs CBC & Chem 7: 04/21/21 05:05 04/22/21 05:26 Labs: Abnormal Lab Results 04/21/21 04/21/21 04/20/21 05:05 05:05 17:42 RBC 4.43 L Hgb 13.5 L Lymph # (Auto) 1.16 L D-Dimer 1.91 H Carbon Dioxide 20 L BUN 25 H Creatinine 1.3 H Glucose 133 H Uric Acid 8.7 H Calcium 8.4 L Phosphorus 2.3 L Ferritin AST 40 H Lactate Dehydrogenase 526 H Total Creatine Kinase C-Reactive Protein Albumin/Globulin Ratio 0.9 L 04/20/21 04/20/21 04/20/21 17:42 17:42 17:42 RBC 4.56 L Hgb 13.6 L Lymph # (Auto) D-Dimer Carbon Dioxide BUN 23 H Creatinine 1.4 H Glucose Uric Acid Calcium 8.2 L Phosphorus Ferritin 910.8 H AST 40 H Lactate Dehydrogenase Total Creatine Kinase 346 H C-Reactive Protein 17.50 H Albumin/Globulin Ratio Meds: Medications Acetaminophen (Acetaminophen 325 Mg Tablet) 650 mg PO Q6HP PRN PRN Reason: PAIN/FEVER > 101 Albuterol/Ipratropium (Ipratropium/Albuterol 3 Ml Ampul.Neb) 3 ml NEB Q4HP PRN PRN Reason: Shortness Of Breath Dexamethasone (Dexamethasone 4 Mg Tablet) 6 mg PO DAILY [facility] Last Admin: 04/21/21 09:13 Dose: 6 mg Documented by: Docusate Sodium (Docusate Sodium 100 Mg Capsule) 100 mg PO BID [facility] Last Admin: 04/21/21 20:32 Dose: Not Given Documented by: Enoxaparin Sodium (Enoxaparin 40 Mg/0.4 Ml Syringe) 40 mg SQ BID [facility] Last Admin: 04/21/21 20:37 Dose: 40 mg Documented by: Gabapentin (Gabapentin 400 Mg Capsule) 400 mg PO BID [facility] Last Admin: 04/21/21 20:37 Dose: 400 mg Documented by: Potassium Chloride 40 meq/ (Dextrose) 520 mls @ 130 mls/hr IV UD PRN PRN Reason: Potassium < 3 Magnesium Sulfate (Magnesium Sulfate) 2 gm in 50 mls @ 50 mls/hr IV UD PRN PRN Reason: Magnesium </= 1.6 REMDESIVIR 100 mg/ Sodium (Chloride) 250 mls @ 500 mls/hr IV DAILY@1400 [facility] Stop: 04/24/21 14:29 Last Infusion: 04/21/21 15:36 Dose: Infused Documented by: Meloxicam (Meloxicam 7.5 Mg Tablet) 15 mg PO QHS [facility]; Protocol Last Admin: 04/21/21 20:37 Dose: 15 mg Documented by: Ondansetron HCl (Ondansetron 4 Mg/2 Ml Vial) 4 mg IV Q4HP PRN PRN Reason: Nausea And Vomiting Paroxetine HCl (Paroxetine 20 Mg Tablet) 60 mg PO HS [facility] Last Admin: 04/21/21 20:37 Dose: 60 mg Documented by: Pneumococcal Polyvalent Vaccine (Pneumococcal 23-Lynda P-Sac Vac 0.5 Ml Syringe) 0.5 ml IM .ONCE ONE Stop: 04/25/21 10:01 Polyethylene Glycol (Polyethylene Glycol 3350 17 Gm Packet) 17 gm PO DAILYP PRN PRN Reason: Constipation Potassium Chloride (Potassium Chloride 20 Meq Tablet) 40 meq PO UD PRN PRN Reason: Potssium is 3-3.5 Potassium Chloride (Potassium Chloride 20 Meq Tablet) 40 meq PO UD PRN PRN Reason: Potassium < 3 Senna (Sennosides 1 Tablet) 2 tab PO DAILYP PRN PRN Reason: Constipation Sodium Chloride (0.9 % Sodium Chloride 10 Ml Syringe) 10 ml IV Q8 [facility] Last Admin: 04/22/21 04:59 Dose: 10 ml Documented by: A/P Narrative A/P Narrative: A: *Covid pneumonia w/ARDS: -inflammatory markers improving *Acute hypoxic respiratory failure: -on high flow fio2 65% & 40l/m *Chronic dyspnea, acute on chronic: -Being worked up by PCP, had unremarkable CT chest earlier in the year, has not had echo *?AYANA on CKD II-III(unknown baseline): Stable *Obesity: *RODERICK on CPAP@home *Depression/anxiety: *GERD: *Chronic pain: P: -Remdesivir/dexamethasone -O2 support, wean as able -Proning, out of bed to chair, mobilization, ambulation in room -home cpap at night -IS/Acapella, prn nebs/IH's -f/u inflammatory markers -ppx: lovoenox bid Full code Time Spent With Patient Time: Total time spent is greater than 50% in coordination of care (as documented) at patient's floor/unit and/or counseling patient: QUALITY VTE Deep Vein Thrombosis/Pulmonary Embolism Present on Admission: No
[2021-04-22 07:58] LABS: Creatine Kinase 260 U/L (24-195)
[2021-04-22 08:01] LABS: ALT/SGPT 22 U/L (<40); AST/SGOT 32 U/L (<40); Albumin 3.2 gm/dL (3.2-5.2); Albumin/Globulin Ratio 1.1 (1.0-2.3); Alkaline Phosphatase 51 U/L (39-117); Bilirubin,Direct < 0.2 mg/dL (0-0.3); Bilirubin,Total 0.5 mg/dL (0.1-1.0); Blood Urea Nitrogen 32 mg/dL (6-20); Calcium 8.4 mg/dL (8.6-10.4); Carbon Dioxide 20 mmol/L (22-30); Chloride 104 mmol/L (96-108); Glomerular Filtration Rate 75; Glucose 130 mg/dL (70-105); Lactate Dehydrogenase 434 U/L (135-225); Phosphorous 2.9 mg/dL (2.5-4.5); Triglycerides 143 mg/dL (<150); Uric Acid 7.8 mg/dL (2.5-8.0)
[2021-04-22] MEDS: ENOXAPARIN 40 MG/0.4 ML SYRINGE SQ SCH ×2 (09:31→21:29)
[2021-04-22] MEDS: DEXAMETHASONE 4 MG TABLET PO SCH (09:31)
[2021-04-22] MEDS: DOCUSATE SODIUM 100 MG CAPSULE PO SCH ×2 (09:31→20:51)
[2021-04-22] MEDS: GABAPENTIN 400 MG CAPSULE PO SCH ×2 (09:32→21:29)
[2021-04-22] MEDS: REMDESIVIR 100 MG in 0.9 % SODIUM CHLORIDE 250 ML IV SCH (14:20)
[2021-04-22] MEDS: MELOXICAM 7.5 MG TABLET PO SCH (21:29)
[2021-04-22] MEDS: PARoxetine 20 MG TABLET PO SCH (21:29)
[2021-04-23] MEDS: 0.9 % SODIUM CHLORIDE 10 ML SYRINGE IV SCH ×3 (04:57→21:30)
--- NOTE | 2021-04-23 08:16 | Internal Med Progress Note ---
SUBJECTIVE Subjective Patient information: Note initiated : 04/23/21 at 8:11 am Service Date, if different from initiated Date: [] Patient: Juan Lua a 55 y/o M admitted on 04/20/21 for Covid, hypoxia. Chief Complaint: [] Interval history: History of present illness: Mr. Lua is a 55 year old M Presents to ED with shortness of breath weakness fatigue cough. Patient states that he said shortness of breath for about a year and has been worked up by his PCP. He had a CT chest in August which was unremarkable. Has not had an echocardiogram. However patient states over the past week he has had increasing shortness of breath where he can hardly walk across living room and has been much more weak and fatigued. He has a dry cough. He is unvaccinated. He was 84% on room air when he came in. 04/21 Patient requiring more oxygen this morning and is on Vapotherm but he says he feels a lot better. Echocardiogram done this morning. 04/22 Patient seems to be feeling well. Has minimal shortness of breath and minimal cough. No overnight event or new complaints. 04/23 Breathing comfortable and doing relatively well. Does desat significantly when ambulated to bathroom but does come up reasonably fast. Does have continued cough and shortness of breath is stable. Titrating down FiO2. Review of Systems: denies headache/fever/chills/nausea/vomiting/chest or abdominal pain/diarrhea. Otherwise see above. Constitutional Vitals: Vital Signs Temp Pulse Resp BP Pulse Ox 96.8 F L 65 17 121/89 92 04/23/21 08:01 04/23/21 08:01 04/23/21 08:01 04/23/21 08:01 04/23/21 08:01 Period Temp Pulse Resp BP Sys/Stephens Pulse Ox Last 24 Hr 96.5 F-99.4 F 63-89 11-23 107-145/63-94 92-98 Intake and Output 04/22/21 04/23/21 04/23/21 21:59 05:59 13:59 Intake Total 1090 720 Output Total 575 200 Balance 515 520 Weight 146.42 kg Intake & Output: Intake & Output 04/22/21 04/23/21 04/23/21 21:59 05:59 13:59 Intake Total 1090 720 Output Total 575 200 Balance 515 520 Weight 146.42 kg Intake: IV 250 Veklury 100 mg In Sodium 250 Chloride 0.9% 250 ml @ 500 mls/ hr IV DAILY@1400 [facility] Rx#: [id number] Oral 840 720 Output: Void Amount 575 200 Other: Meal Dinner Percent of Meal Consumed 100% Feeding Ability Independent Urine Appearance Clear Clear Urine Color Dark Yellow Light Yaneth Urine Odor Normal Stool Size Large Stool Color Brown Stool Consistency Soft Loose # Voids 1 # Bowel Movements 1 Exam: General: Alert, Awake, No acute Distress, obese Eyes/N/T: EOMI, Head/Neck: neck supple, CV: RRR, No murmurs, normal s1/s2 Pulm: Mild fine b/l and better aeration, no wheezing Abd: soft, nontender, +BS x4 Ext: no clubbing/cyanosis/edema Neuro: Alert, no focal deficits, moves all extremities, Skin: warm/dry OBJ DATA Labs CBC & Chem 7: 04/21/21 05:05 04/22/21 05:26 Labs: Abnormal Lab Results 04/22/21 04/22/21 04/22/21 06:16 05:26 05:26 RBC Hgb Lymph # (Auto) D-Dimer 0.99 H Carbon Dioxide 20 L BUN 32 H Creatinine Glucose 130 H Uric Acid Calcium 8.4 L Phosphorus Ferritin AST Lactate Dehydrogenase 434 H Total Creatine Kinase 260 H C-Reactive Protein 9.00 H Albumin/Globulin Ratio 04/22/21 04/21/21 04/21/21 05:26 05:05 05:05 RBC 4.43 L Hgb 13.5 L Lymph # (Auto) 1.16 L D-Dimer Carbon Dioxide 20 L BUN 25 H Creatinine 1.3 H Glucose 133 H Uric Acid 8.7 H Calcium 8.4 L Phosphorus 2.3 L Ferritin 1005.0 H AST 40 H Lactate Dehydrogenase 526 H Total Creatine Kinase C-Reactive Protein Albumin/Globulin Ratio 0.9 L 04/20/21 04/20/21 04/20/21 17:42 17:42 17:42 RBC Hgb Lymph # (Auto) D-Dimer 1.91 H Carbon Dioxide BUN 23 H Creatinine 1.4 H Glucose Uric Acid Calcium 8.2 L Phosphorus Ferritin 910.8 H AST 40 H Lactate Dehydrogenase Total Creatine Kinase 346 H C-Reactive Protein 17.50 H Albumin/Globulin Ratio 04/20/21 17:42 RBC 4.56 L Hgb 13.6 L Lymph # (Auto) D-Dimer Carbon Dioxide BUN Creatinine Glucose Uric Acid Calcium Phosphorus Ferritin AST Lactate Dehydrogenase Total Creatine Kinase C-Reactive Protein Albumin/Globulin Ratio Meds: Medications Acetaminophen (Acetaminophen 325 Mg Tablet) 650 mg PO Q6HP PRN PRN Reason: PAIN/FEVER > 101 Albuterol/Ipratropium (Ipratropium/Albuterol 3 Ml Ampul.Neb) 3 ml NEB Q4HP PRN PRN Reason: Shortness Of Breath Dexamethasone (Dexamethasone 4 Mg Tablet) 6 mg PO DAILY [facility] Last Admin: 04/22/21 09:31 Dose: 6 mg Documented by: Docusate Sodium (Docusate Sodium 100 Mg Capsule) 100 mg PO BID [facility] Last Admin: 04/22/21 20:51 Dose: Not Given Documented by: Enoxaparin Sodium (Enoxaparin 40 Mg/0.4 Ml Syringe) 40 mg SQ BID [facility] Last Admin: 04/22/21 21:29 Dose: 40 mg Documented by: Gabapentin (Gabapentin 400 Mg Capsule) 400 mg PO BID [facility] Last Admin: 04/22/21 21:29 Dose: 400 mg Documented by: Potassium Chloride 40 meq/ (Dextrose) 520 mls @ 130 mls/hr IV UD PRN PRN Reason: Potassium < 3 Magnesium Sulfate (Magnesium Sulfate) 2 gm in 50 mls @ 50 mls/hr IV UD PRN PRN Reason: Magnesium </= 1.6 REMDESIVIR 100 mg/ Sodium (Chloride) 250 mls @ 500 mls/hr IV DAILY@1400 [facility] Stop: 04/24/21 14:29 Last Infusion: 04/22/21 15:49 Dose: Infused Documented by: Meloxicam (Meloxicam 7.5 Mg Tablet) 15 mg PO QHS [facility]; Protocol Last Admin: 04/22/21 21:29 Dose: 15 mg Documented by: Ondansetron HCl (Ondansetron 4 Mg/2 Ml Vial) 4 mg IV Q4HP PRN PRN Reason: Nausea And Vomiting Paroxetine HCl (Paroxetine 20 Mg Tablet) 60 mg PO HS [facility] Last Admin: 04/22/21 21:29 Dose: 60 mg Documented by: Pneumococcal Polyvalent Vaccine (Pneumococcal 23-Lynda P-Sac Vac 0.5 Ml Syringe) 0.5 ml IM .ONCE ONE Stop: 04/25/21 10:01 Polyethylene Glycol (Polyethylene Glycol 3350 17 Gm Packet) 17 gm PO DAILYP PRN PRN Reason: Constipation Potassium Chloride (Potassium Chloride 20 Meq Tablet) 40 meq PO UD PRN PRN Reason: Potssium is 3-3.5 Potassium Chloride (Potassium Chloride 20 Meq Tablet) 40 meq PO UD PRN PRN Reason: Potassium < 3 Senna (Sennosides 1 Tablet) 2 tab PO DAILYP PRN PRN Reason: Constipation Sodium Chloride (0.9 % Sodium Chloride 10 Ml Syringe) 10 ml IV Q8 [facility] Last Admin: 04/23/21 04:57 Dose: 10 ml Documented by: A/P Narrative A/P Narrative: A: *Covid pneumonia w/ARDS: -inflammatory markers improving *Acute hypoxic respiratory failure: -on vapotherm down to fio2 50% & 40l/m *Chronic dyspnea, acute on chronic: -Being worked up by PCP, had unremarkable CT chest earlier in the year -echo with 50% EF otherwise normal *?AYANA on CKD II-III(unknown baseline): Stable *Obesity: *RODERICK on CPAP@home *Depression/anxiety: *GERD: *Chronic pain: P: -Remdesivir/dexamethasone -O2 support, wean as able -Proning, out of bed to chair, mobilization, ambulation in room -home cpap at night -IS/Acapella, prn nebs/IH's -f/u inflammatory markers -ppx: lovoenox bid Full code Time Spent With Patient Time: Total time spent is greater than 50% in coordination of care (as documented) at patient's floor/unit and/or counseling patient: QUALITY VTE Deep Vein Thrombosis/Pulmonary Embolism Present on Admission: No
[2021-04-23] MEDS: ENOXAPARIN 40 MG/0.4 ML SYRINGE SQ SCH ×2 (08:54→21:29)
[2021-04-23] MEDS: DOCUSATE SODIUM 100 MG CAPSULE PO SCH ×2 (08:55→21:28)
[2021-04-23] MEDS: GABAPENTIN 400 MG CAPSULE PO SCH ×2 (08:55→21:28)
[2021-04-23] MEDS: DEXAMETHASONE 4 MG TABLET PO SCH (08:55)
[2021-04-23] MEDS: REMDESIVIR 100 MG in 0.9 % SODIUM CHLORIDE 250 ML IV SCH (15:01)
[2021-04-23] MEDS: PARoxetine 20 MG TABLET PO SCH (21:28)
[2021-04-23] MEDS: MELOXICAM 7.5 MG TABLET PO SCH (21:29)
[2021-04-24] MEDS: 0.9 % SODIUM CHLORIDE 10 ML SYRINGE IV SCH ×3 (05:21→21:39)
--- NOTE | 2021-04-24 07:32 | Internal Med Progress Note ---
SUBJECTIVE Subjective Patient information: Note initiated : 04/24/21 at 7:31 am Service Date, if different from initiated Date: [] Patient: Juan Lua 55 y/o M admitted on 04/20/21 for Covid, hypoxia. Chief Complaint: [] Interval history: History of present illness: Mr. Lua is a 55 year old M Presents to ED with shortness of breath weakness fatigue cough. Patient states that he said shortness of breath for about a year and has been worked up by his PCP. He had a CT chest in August which was unremarkable. Has not had an echocardiogram. However patient states over the past week he has had increasing shortness of breath where he can hardly walk across living room and has been much more weak and fatigued. He has a dry cough. He is unvaccinated. He was 84% on room air when he came in. 04/21 Patient requiring more oxygen this morning and is on Vapotherm but he says he feels a lot better. Echocardiogram done this morning. 04/22 Patient seems to be feeling well. Has minimal shortness of breath and minimal cough. No overnight event or new complaints. 04/23 Breathing comfortable and doing relatively well. Does desat significantly when ambulated to bathroom but does come up reasonably fast. Does have continued cough and shortness of breath is stable. Titrating down FiO2. 04/24 Seems to have plateaued. Mild cough mild shortness of breath. Oxygen requirement slightly better than yesterday. CRP much improved. Review of Systems: denies headache/fever/chills/nausea/vomiting/chest or abdominal pain/diarrhea. Otherwise see above. Constitutional Vitals: Vital Signs Temp Pulse Resp BP Pulse Ox 96.7 F L 82 17 116/44 91 04/24/21 04:02 04/24/21 06:02 04/24/21 06:02 04/24/21 06:02 04/24/21 06:02 Period Temp Pulse Resp BP Sys/Stephens Pulse Ox Last 24 Hr 96.5 F-98.5 F 63-92 16-24 105-133/44-99 89-96 Intake and Output 04/23/21 04/24/21 04/24/21 21:59 05:59 13:59 Intake Total 1130 480 Output Total 200 570 Balance 930 -90 Weight 147.191 kg Intake & Output: Intake & Output 04/23/21 04/24/21 04/24/21 21:59 05:59 13:59 Intake Total 1130 480 Output Total 200 570 Balance 930 -90 Weight 147.191 kg Intake: IV 250 Veklury 100 mg In Sodium 250 Chloride 0.9% 250 ml @ 500 mls/ hr IV DAILY@1400 [facility] Rx#: [id number] Oral 880 480 Output: Void Amount 200 570 Other: Meal Dinner Percent of Meal Consumed 100% Urine Appearance Clear Clear Urine Color Light Yaneth Light Yaneth Urine Odor Normal Exam: General: Alert, Awake, No acute Distress, obese Eyes/N/T: EOMI, Head/Neck: neck supple, CV: RRR, No murmurs, normal s1/s2 Pulm: Mild fine b/l and better aeration, no wheezing Abd: soft, nontender, +BS x4 Ext: no clubbing/cyanosis/edema Neuro: Alert, no focal deficits, moves all extremities, Skin: warm/dry OBJ DATA Labs CBC & Chem 7: 04/21/21 05:05 04/22/21 05:26 Labs: Abnormal Lab Results 04/23/21 04/22/21 04/22/21 05:15 06:16 05:26 RBC Hgb Lymph # (Auto) D-Dimer 0.99 H Carbon Dioxide BUN Creatinine Glucose Uric Acid Calcium Phosphorus Ferritin AST Lactate Dehydrogenase Total Creatine Kinase 260 H C-Reactive Protein 4.30 H Albumin/Globulin Ratio 04/22/21 04/22/21 04/21/21 05:26 05:26 05:05 RBC Hgb Lymph # (Auto) D-Dimer Carbon Dioxide 20 L 20 L BUN 32 H 25 H Creatinine 1.3 H Glucose 130 H 133 H Uric Acid 8.7 H Calcium 8.4 L 8.4 L Phosphorus 2.3 L Ferritin 1005.0 H AST 40 H Lactate Dehydrogenase 434 H 526 H Total Creatine Kinase C-Reactive Protein 9.00 H Albumin/Globulin Ratio 0.9 L 04/21/21 05:05 RBC 4.43 L Hgb 13.5 L Lymph # (Auto) 1.16 L D-Dimer Carbon Dioxide BUN Creatinine Glucose Uric Acid Calcium Phosphorus Ferritin AST Lactate Dehydrogenase Total Creatine Kinase C-Reactive Protein Albumin/Globulin Ratio Meds: Medications Acetaminophen (Acetaminophen 325 Mg Tablet) 650 mg PO Q6HP PRN PRN Reason: PAIN/FEVER > 101 Albuterol/Ipratropium (Ipratropium/Albuterol 3 Ml Ampul.Neb) 3 ml NEB Q4HP PRN PRN Reason: Shortness Of Breath Dexamethasone (Dexamethasone 4 Mg Tablet) 6 mg PO DAILY [facility] Last Admin: 04/23/21 08:55 Dose: 6 mg Documented by: Docusate Sodium (Docusate Sodium 100 Mg Capsule) 100 mg PO BID [facility] Last Admin: 04/23/21 21:28 Dose: 100 mg Documented by: Enoxaparin Sodium (Enoxaparin 40 Mg/0.4 Ml Syringe) 40 mg SQ BID [facility] Last Admin: 04/23/21 21:29 Dose: 40 mg Documented by: Gabapentin (Gabapentin 400 Mg Capsule) 400 mg PO BID [facility] Last Admin: 04/23/21 21:28 Dose: 400 mg Documented by: Potassium Chloride 40 meq/ (Dextrose) 520 mls @ 130 mls/hr IV UD PRN PRN Reason: Potassium < 3 Magnesium Sulfate (Magnesium Sulfate) 2 gm in 50 mls @ 50 mls/hr IV UD PRN PRN Reason: Magnesium </= 1.6 REMDESIVIR 100 mg/ Sodium (Chloride) 250 mls @ 500 mls/hr IV DAILY@1400 [facility] Stop: 04/24/21 14:29 Last Infusion: 04/23/21 15:51 Dose: Infused Documented by: Meloxicam (Meloxicam 7.5 Mg Tablet) 15 mg PO QHS [facility]; Protocol Last Admin: 04/23/21 21:29 Dose: 15 mg Documented by: Ondansetron HCl (Ondansetron 4 Mg/2 Ml Vial) 4 mg IV Q4HP PRN PRN Reason: Nausea And Vomiting Paroxetine HCl (Paroxetine 20 Mg Tablet) 60 mg PO [facility] Last Admin: 04/23/21 21:28 Dose: 60 mg Documented by: Pneumococcal Polyvalent Vaccine (Pneumococcal 23-Lynda P-Sac Vac 0.5 Ml Syringe) 0.5 ml IM .ONCE ONE Stop: 04/25/21 10:01 Polyethylene Glycol (Polyethylene Glycol 3350 17 Gm Packet) 17 gm PO DAILYP PRN PRN Reason: Constipation Potassium Chloride (Potassium Chloride 20 Meq Tablet) 40 meq PO UD PRN PRN Reason: Potssium is 3-3.5 Potassium Chloride (Potassium Chloride 20 Meq Tablet) 40 meq PO UD PRN PRN Reason: Potassium < 3 Senna (Sennosides 1 Tablet) 2 tab PO DAILYP PRN PRN Reason: Constipation Sodium Chloride (0.9 % Sodium Chloride 10 Ml Syringe) 10 ml IV Q8 [facility] Last Admin: 04/24/21 05:21 Dose: 10 ml Documented by: A/P Narrative A/P Narrative: A: *Covid pneumonia w/ARDS: -inflammatory markers improving *Acute hypoxic respiratory failure: -on vapotherm down to fio2 45% & 40l/m *Chronic dyspnea, acute on chronic: -Being worked-up by PCP, had unremarkable CT chest earlier in the year -echo with 50% EF otherwise normal *?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
[2021-04-24] MEDS: DOCUSATE SODIUM 100 MG CAPSULE PO SCH ×2 (09:12→20:59)
[2021-04-24] MEDS: ENOXAPARIN 40 MG/0.4 ML SYRINGE SQ SCH ×2 (09:12→21:39)
[2021-04-24] MEDS: DEXAMETHASONE 4 MG TABLET PO SCH (09:12)
[2021-04-24] MEDS: GABAPENTIN 400 MG CAPSULE PO SCH ×2 (09:12→21:39)
[2021-04-24] MEDS: REMDESIVIR 100 MG in 0.9 % SODIUM CHLORIDE 250 ML IV SCH (15:02)
[2021-04-24] MEDS: PARoxetine 20 MG TABLET PO SCH (21:39)
[2021-04-24] MEDS: MELOXICAM 7.5 MG TABLET PO SCH (21:39)
[2021-04-25] MEDS: 0.9 % SODIUM CHLORIDE 10 ML SYRINGE IV SCH ×3 (05:38→21:36)
[2021-04-25 07:43] LABS: Basophils # (Auto) 0.02 K/mcL (0.00-0.30); Basophils % (Auto) 0.2 % (0.0-2.0); Eosinophils # (Auto) 0.02 K/mcL (0.00-0.70); Eosinophils % (Auto) 0.2 % (0.0-7.0); Hematocrit 41.4 % (40.1-51.0); Hemoglobin 13.5 g/dL (13.7-17.5); Lymphocytes # (Auto) 1.38 K/mcL (1.50-4.80); Lymphocytes % (Auto) 15.1 % (15.5-49.0); Mean Cell Volume 91.2 fL (80.0-100.0); Mean Corpuscular HGB Conc 32.6 g/dL (31.0-36.0); Mean Platelet Volume 9.1 fL (7.4-10.4); Monocytes # (Auto) 0.69 K/mcL (0.10-0.90); Monocytes % (Auto) 7.6 % (1.0-12.0); Neutrophils % (Auto) 76.9 % (38.0-78.0); Platelet Count 235 K/mcL (140-440); RBC 4.54 M/mcL (4.63-6.08); Red Cell Distribution Width 12.6 % (11.5-14.5); WBC 9.1 K/mcL (4.5-11.0)
[2021-04-25 08:23] LABS: ALT/SGPT 61 U/L (<40); AST/SGOT 49 U/L (<40); Albumin 3.1 gm/dL (3.2-5.2); Albumin/Globulin Ratio 1.1 (1.0-2.3); Alkaline Phosphatase 53 U/L (39-117); Bilirubin,Total 0.7 mg/dL (0.1-1.0); Blood Urea Nitrogen 23 mg/dL (6-20); Calcium 8.2 mg/dL (8.6-10.4); Carbon Dioxide 25 mmol/L (22-30); Chloride 105 mmol/L (96-108); Globulin 2.8 gm/dL (2.2-3.7); Glomerular Filtration Rate 84; Glucose 80 mg/dL (70-105)
[2021-04-25] MEDS ORDERED: guaiFENesin/DEXTROMETHORPHAN ORAL SOL PO PRN (09:30)
--- NOTE | 2021-04-25 09:30 | Internal Med Progress Note ---
SUBJECTIVE Subjective Patient information: Note initiated : 04/25/21 at 9:26 am Service Date, if different from initiated Date: [] Patient: Juan Lua 55 y/o M admitted on 04/20/21 for Covid, hypoxia. Chief Complaint: [CoVID pneumonia] Interval history: History of present illness: Mr. Lua is a 55 year old M Presents to ED with shortness of breath weakness fatigue cough. Patient states that he said shortness of breath for about a year and has been worked up by his PCP. He had a CT chest in August which was unremarkable. Has not had an echocardiogram. However patient states over the past week he has had increasing shortness of breath where he can hardly walk across living room and has been much more weak and fatigued. He has a dry cough. He is unvaccinated. He was 84% on room air when he came in. 04/25: Afebrile overnight. Current oxygen requirement: high flow oxygen 35L/min, FiO2 35%. Denies SOB. Denies cough or sputum production. Denies wheezing. Denies chest pain. Denies fever, chills, or sweating. Denies anxiety. Denies any other discomfort. Constitutional Vitals: Vital Signs Temp Pulse Resp BP Pulse Ox 35.9 C L 68 20 111/71 93 04/25/21 04:01 04/25/21 08:01 04/24/21 20:44 04/25/21 08:01 04/25/21 08:01 Period Temp Pulse Resp BP Sys/Stephens Pulse Ox Last 24 Hr 35.9 C-36.4 C 68-96 16- 106-133/66-91 90-98 Intake and Output 04/24/21 04/25/21 04/25/21 21:59 05:59 13:59 Intake Total 730 480 Output Total 1125 250 Balance -395 230 Weight 146.465 kg Intake & Output: Intake & Output 04/24/21 04/25/21 04/25/21 21:59 05:59 13:59 Intake Total 730 480 Output Total 1125 250 Balance -395 230 Weight 146.465 kg Intake: IV 250 Veklury 100 mg In Sodium 250 Chloride 0.9% 250 ml @ 500 mls/ hr IV DAILY@1400 [facility] Rx#: [id number] Oral 480 480 Output: Void Amount 1125 250 Other: Urine Appearance Clear Clear Urine Color Light Yaneth Light Yaneth General appearance: cooperative and no acute distress Head Head exam: Present atraumatic and normocephalic Eye Eye exam: Present EOMI and PERRL ENT ENT exam: Present mucous membranes moist, normal exam and normal external ear exam Additional comments: High flow oxygen in place Neck Neck exam: Present normal inspection; Absent lymphadenopathy, tenderness and thyromegaly Respiratory Respiratory exam: Present rhonchi; Absent accessory muscle use, respiratory distress and wheezes Cardiovascular Cardiovascular exam: Present normal rate and rhythm; Absent JVD GI/Abdominal GI/Abdominal exam: Present normal bowel sounds and soft; Absent organomegaly and tenderness Rectal Rectal exam: Present deferred Extremities Exam Extremities exam: Present full ROM, normal capillary refill and normal in spection; Absent tenderness Neurological Exam Neurological exam: Present alert, CN II-XII intact and oriented X3; Absent motor sensory deficit Psychiatric Psychiatric exam: Present normal affect and normal mood; Absent anxious and depressed Skin Skin exam: Present dry and intact OBJ DATA Labs CBC & Chem 7: 04/25/21 05:58 04/25/21 05:57 Labs: Abnormal Lab Results 04/25/21 04/25/21 04/23/21 05:58 05:57 05:15 RBC 4.54 L Hgb 13.5 L Lymph % (Auto) 15.1 L Lymph # (Auto) 1.38 L BUN 23 H Calcium 8.2 L AST 49 H ALT 61 H C-Reactive Protein 4.30 H Albumin 3.1 L Meds: Medications Acetaminophen (Acetaminophen 325 Mg Tablet) 650 mg PO Q6HP PRN PRN Reason: PAIN/FEVER > 101 Albuterol/Ipratropium (Ipratropium/Albuterol 3 Ml Ampul.Neb) 3 ml NEB Q4HP PRN PRN Reason: Shortness Of Breath Dexamethasone (Dexamethasone 4 Mg Tablet) 6 mg PO DAILY [facility] Last Admin: 04/24/21 09:12 Dose: 6 mg Documented by: Docusate Sodium (Docusate Sodium 100 Mg Capsule) 100 mg PO BID [facility] Last Admin: 04/24/21 20:59 Dose: Not Given Documented by: Enoxaparin Sodium (Enoxaparin 40 Mg/0.4 Ml Syringe) 40 mg SQ BID [facility] Last Admin: 04/24/21 21:39 Dose: 40 mg Documented by: Gabapentin (Gabapentin 400 Mg Capsule) 400 mg PO BID [facility] Last Admin: 04/24/21 21:39 Dose: 400 mg Documented by: Potassium Chloride 40 meq/ (Dextrose) 520 mls @ 130 mls/hr IV UD PRN PRN Reason: Potassium < 3 Magnesium Sulfate (Magnesium Sulfate) 2 gm in 50 mls @ 50 mls/hr IV UD PRN PRN Reason: Magnesium </= 1.6 REMDESIVIR 100 mg/ Sodium (Chloride) 250 mls @ 500 mls/hr IV Q24H [facility] Stop: 04/29/21 14:29 Meloxicam (Meloxicam 7.5 Mg Tablet) 15 mg PO QHS [facility]; Protocol Last Admin: 04/24/21 21:39 Dose: 15 mg Documented by: Ondansetron HCl (Ondansetron 4 Mg/2 Ml Vial) 4 mg IV Q4HP PRN PRN Reason: Nausea And Vomiting Paroxetine HCl (Paroxetine 20 Mg Tablet) 60 mg PO HS [facility] Last Admin: 04/24/21 21:39 Dose: 60 mg Documented by: Pneumococcal Polyvalent Vaccine (Pneumococcal 23-Lynda P-Sac Vac 0.5 Ml Syringe) 0.5 ml IM .ONCE ONE Stop: 04/25/21 10:01 Polyethylene Glycol (Polyethylene Glycol 3350 17 Gm Packet) 17 gm PO DAILYP PRN PRN Reason: Constipation Potassium Chloride (Potassium Chloride 20 Meq Tablet) 40 meq PO UD PRN PRN Reason: Potssium is 3-3.5 Potassium Chloride (Potassium Chloride 20 Meq Tablet) 40 meq PO UD PRN PRN Reason: Potassium < 3 Senna (Sennosides 1 Tablet) 2 tab PO DAILYP PRN PRN Reason: Constipation Sodium Chloride (0.9 % Sodium Chloride 10 Ml Syringe) 10 ml IV Q8 [facility] Last Admin: 04/25/21 05:38 Dose: 10 ml Documented by: A/P Assessment and plan (1) Pneumonia due to COVID-19 virus: Status: Acute (2) RODERICK (obstructive sleep apnea): Status: Acute (3) Anxiety and depression: Status: Acute Narrative A/P Narrative: Assessment and Plans: 1. CoVID pneumonia: Stays in inpatient PCU Isolation: airborne and contact CXR every few days cbc w/ auto diff daily to trend WBC Oxygen therapy titrate to achieve spo2 88-92% Tylenol PRN fever DuoNEB NEB PRN wheezing Robitussin DM PRN cough Remdesivir Dexamethasone Lovenox 2. Depression and anxiety: Paroxetine 3. RODERICK: Not on CPAP at home Need outpatient sleep study upon discharge GI ppx: not currently indicated DVT ppx: Lovenox Code status: Full Prognosis: guarded Disposition: inpatient PCU Time Spent With Patient Time: Total time spent is greater than 50% in coordination of care (as documented) at patient's floor/unit and/or counseling patient: Total time spent with greater than 50% in coordination of care (as documented) at patient's floor/unit and/or counseling patient:: 25 - 35 minutes QUALITY VTE Deep Vein Thrombosis/Pulmonary Embolism Present on Admission: No
[2021-04-25] MEDS: DEXAMETHASONE 4 MG TABLET PO SCH (09:35)
[2021-04-25] MEDS: ENOXAPARIN 40 MG/0.4 ML SYRINGE SQ SCH ×2 (09:35→21:36)
[2021-04-25] MEDS: DOCUSATE SODIUM 100 MG CAPSULE PO SCH ×2 (09:36→20:28)
[2021-04-25] MEDS: GABAPENTIN 400 MG CAPSULE PO SCH ×2 (09:36→21:36)
[2021-04-25] MEDS ORDERED: PNEUMOCOCCAL 23-VAL P-SAC VAC 0.5 ML SYRINGE IM ONE (10:00)
--- NOTE | 2021-04-25 14:14 | EKG ---
[facility] Test Date: 2021-04-20 Pat Name: Juan Lua Department: ED Room: Gender: Male Judge: AW : 1965 Requested By: Maria Esther Fernandez Order Number: [id number] Reading MD: Dony Lala M.D. Measurements Intervals [place] Rate: 106 P: 37 DC: 148 QRS: -21 QRSD: 94 T: 59 QT: 344 QTc: 457 Interpretive Statements SINUS TACHYCARDIA BORDERLINE LEFT AXIS DEVIATION Electronically Signed On 04-25-2021 14:13:59 PDT by Dony Lala M.D. /[email or web address]/[id number]
[2021-04-25] MEDS: REMDESIVIR 100 MG in 0.9 % SODIUM CHLORIDE 250 ML IV SCH (14:27)
[2021-04-25] MEDS: MELOXICAM 7.5 MG TABLET PO SCH (21:36)
[2021-04-25] MEDS: PARoxetine 20 MG TABLET PO SCH (21:36)
[2021-04-26] MEDS: 0.9 % SODIUM CHLORIDE 10 ML SYRINGE IV SCH (05:09)
[2021-04-26 07:07] LABS: Basophils # (Auto) 0.02 K/mcL (0.00-0.30); Basophils % (Auto) 0.2 % (0.0-2.0); Eosinophils # (Auto) 0.07 K/mcL (0.00-0.70); Eosinophils % (Auto) 0.8 % (0.0-7.0); Hematocrit 41.8 % (40.1-51.0); Hemoglobin 13.5 g/dL (13.7-17.5); Lymphocytes # (Auto) 1.42 K/mcL (1.50-4.80); Lymphocytes % (Auto) 16.6 % (15.5-49.0); Mean Cell Volume 91.9 fL (80.0-100.0); Mean Corpuscular HGB Conc 32.3 g/dL (31.0-36.0); Mean Platelet Volume 9.4 fL (7.4-10.4); Monocytes % (Auto) 8.2 % (1.0-12.0); Neutrophils % (Auto) 74.2 % (38.0-78.0); Platelet Count 236 K/mcL (140-440); RBC 4.55 M/mcL (4.63-6.08); Red Cell Distribution Width 12.9 % (11.5-14.5); WBC 8.6 K/mcL (4.5-11.0)
[2021-04-26 07:45] LABS: ALT/SGPT 66 U/L (<40); AST/SGOT 37 U/L (<40); Albumin 2.9 gm/dL (3.2-5.2); Alkaline Phosphatase 57 U/L (39-117); Bilirubin,Total 0.6 mg/dL (0.1-1.0); Blood Urea Nitrogen 26 mg/dL (6-20); Calcium 8.3 mg/dL (8.6-10.4); Carbon Dioxide 25 mmol/L (22-30); Chloride 104 mmol/L (96-108); Glomerular Filtration Rate 75; Glucose 91 mg/dL (70-105)
[2021-04-26] MEDS: ENOXAPARIN 40 MG/0.4 ML SYRINGE SQ SCH (09:13)
[2021-04-26] MEDS: DOCUSATE SODIUM 100 MG CAPSULE PO SCH (09:13)
[2021-04-26] MEDS: GABAPENTIN 400 MG CAPSULE PO SCH (09:13)
[2021-04-26] MEDS: DEXAMETHASONE 4 MG TABLET PO SCH (09:13)
--- NOTE | 2021-04-26 10:40 | Discharge Summary ---
Discharge Provider Provider Patient information: Note initiated : 04/26/21 at 10:37 am Service Date, if different from initiated Date: [] Patient: Juan Lua 55 y/o M admitted on 04/20/21 for Covid, hypoxia. Chief Complaint: [CoVID pneumonia] Date of admission: 04/20/21 21:04 Discharge date: 04/26/21 Primary care physician: Devon Nails Consults: 04/20/21 Consult to Physician [CONS] Stat Comment: Consulting Provider: Luca Cobb Reason For Exam: Physician to Consult Discharge Meds Discharge Medications Home Medications Atorvastatin [Lipitor] 20 mg PO DAILY 03/10/15 [History Confirmed 04/20/21 Last Taken 04/20/21 08:00] docusate sodium [DulcoEase] 250 mg PO BID 03/10/15 [History Confirmed 04/20/21 Last Taken 04/20/21 08:00] gabapentin 400 mg PO BID 03/10/15 [History Confirmed 04/20/21 Last Taken 04/20/21 08:00] meloxicam 15 mg PO HS 03/10/15 [History Confirmed 04/20/21 Last Taken 04/19/21 21:00] omega 6-jmk-jaj-fish oil [Fish Oil] 1,000 mg PO BID 03/10/15 [History Confirmed 04/20/21 Last Taken 04/20/21 08:00] paroxetine HCl [Paxil] 60 mg PO HS 03/10/15 [History Confirmed 04/20/21 Last Taken 04/20/21 21:00] ergocalciferol (vitamin D2) 50,000 unit PO WEEKLY 04/23/19 [History Confirmed 0 04/20/21 Last Taken 04/17/21 08:00] multivit with min-folic acid 200 mcg PO DAILY 04/23/19 [History Confirmed 04/20/21 Last Taken 04/20/21 08:00] omeprazole 20 mg PO ACB 04/23/19 [History Confirmed 04/20/21 Last Taken 04/20/21 07:00] dextromethorphan-guaifenesin [Robafen DM Cough] 10 ml PO Q4HP PRN 10 Days ml 04/26/21 [Rx Last Taken Unknown] COURSE Hospital Course Hospital course: Patient was admitted on April 20, 2021 for Covid pneumonia. Supplemental oxygen's initially in terms of high flow oxygen and subsequently on simple nasal cannula oxygen, dexamethasone, remdesivir, anticoagulations in terms of Lovenox were all given as extended Covid treatments. By April 26, 2021, patient tolerated room air, has been afebrile for more than 24 hours, any leukocytosis resolved, and otherwise reached clinical stability. As such, the decision was made to discharge him home with prescription given, 2 weeks PCP appointment arranged, and all questions were answered prior to patient being physically discharged. Discharge diagnosis: CoVID pnuemonia Time Spent with Patient Time attestation: Total time spent providing and/or coordinating discharge services: Patient was admitted on April 20, 2021 for Covid pneumonia. Supplemental oxygen's initially in terms of high flow oxygen and subsequently on simple nasal cannula oxygen, dexamethasone, remdesivir, anticoagulations in terms of Lovenox were all given as extended Covid treatments. By April 26, 2021, patient tolerated room air, has been afebrile for more than 24 hours, any leukocytosis resolved, and otherwise reached clinical stability. As such, the decision was made to discharge him home with prescription given, 2 weeks PCP appointment arranged, and all questions were answered prior to patient being physically discharged. EXAM Constitutional Vitals: Temp Pulse Resp BP Pulse Ox 36.7 C 98 H 16 108/79 92 04/26/21 08:01 04/26/21 10:01 04/26/21 08:18 04/26/21 10:01 04/26/21 10:01 General appearance: cooperative and no acute distress Head Head exam: Present atraumatic and normocephalic Eye Eye exam: Present EOMI and PERRL ENT ENT exam: Present mucous membranes moist, normal exam and normal external ear exam Neck Neck exam: Present normal inspection; Absent lymphadenopathy, tenderness and thyromegaly Respiratory Respiratory exam: Absent accessory muscle use, respiratory distress and wheezes Cardiovascular Cardiovascular exam: Present normal rate and rhythm; Absent JVD GI/Abdominal GI/Abdominal exam: Present normal bowel sounds and soft; Absent organomegaly and tenderness Rectal Rectal exam: Present deferred Extremities Exam Extremities exam: Present full ROM, normal capillary refill and normal inspection; Absent tenderness Neurological Exam Neurological exam: Present alert, CN II-XII intact and oriented X3; Absent motor sensory deficit Psychiatric Psychiatric exam: Present normal affect and normal mood; Absent anxious and depressed Skin Skin exam: Present dry and intact Discharge Data Data Completed and Pending Labs on day of discharge: Labs from last 24 hours 04/26/21 04/26/21 05:44 05:44 WBC 8.6 RBC 4.55 L Hgb 13.5 L Hct 41.8 MCV 91.9 MCH 29.7 MCHC 32.3 RDW 12.9 Plt Count 236 MPV 9.4 Neut % (Auto) 74.2 Lymph % (Auto) 16.6 [place] % (Auto) 8.2 Eos % (Auto) 0.8 Baso % (Auto) 0.2 Lymph # (Auto) 1.42 L [place] # (Auto) 0.70 Eos # (Auto) 0.07 Baso # (Auto) 0.02 Absolute Neutrophils 6.34 Sodium 139 Potassium 4.6 Chloride 104 Carbon Dioxide 25 Anion Gap 10.0 BUN 26 H Creatinine 1.1 GFR Calculation 75 Glucose 91 Calcium 8.3 L Total Bilirubin 0.6 AST 37 ALT 66 H Alkaline Phosphatase 57 Total Protein 5.9 Albumin 2.9 L Globulin 3.0 Albumin/Globulin Ratio 1.0 Discharge Plan Patient/Caregiver Discharge Instructions Activity: increase activity as tolerated Diet: Regular Diet Prescriptions: New dextromethorphan-guaifenesin [Robafen DM Cough] 10-100 mg/5 mL Liquid 10 ml PO Q4HP PRN (Reason: Cough) 10 Days RF: 0 Continued docusate sodium [DulcoEase] 100 MG capsule 250 mg PO BID RF: 0 meloxicam 15 MG tablet 15 mg PO HS RF: 0 paroxetine HCl [Paxil] 30 MG tablet 60 mg PO HS RF: 0 Atorvastatin [Lipitor] 10 MG tablet 20 mg PO DAILY RF: 0 gabapentin 300 MG capsule 400 mg PO BID RF: 0 omega 0-lub-bdp-fish oil [Fish Oil] 1,000 MG capsule 1,000 mg PO BID RF: 0 omeprazole 20 MG capsule 20 mg PO ACB RF: 0 ergocalciferol (vitamin D2) 50,000 UNIT capsule 50,000 unit PO WEEKLY RF: 0 multivit with min-folic acid 200 MCG tablet,chewable 200 mcg PO DAILY RF: 0 Follow Up Plan Follow up with: Devon Nails ARNP [Primary Care Provider] - Patient Disposition: Home, Self-Care Prognosis: Fair Rehab Potential: Good I certify that the patient requires SNF services: No Overall status at discharge: patient is back to baseline Discharge Orders: Discharge Order (Routine); Ordered 04/26/21 Ordered By: Bao CHENG VTE Deep Vein Thrombosis/Pulmonary Embolism Present on Admission: No
[2021-04-26] MEDS: REMDESIVIR 100 MG in 0.9 % SODIUM CHLORIDE 250 ML IV SCH (11:29)
== END 2021-04-26 12:45 | disposition home or self-care (01) | DRG 177 ==
LOC: ED 14:59 → ICU 21:04
PROVIDERS: ADMIT Internal Medicine; ATTEND Internal Medicine